=== PATIENT | male | born 1960 | race Caucasian/White ===

== ENCOUNTER 2024-06-04 10:57 | Outpatient (CLI) | payer OTHER, SELFPAY ==
--- NOTE | ~2024-06-04 | CT_ITS ---
EXAMINATION: CT sinus wo con DATE: 06/04/2024 11:21 INDICATION: Chronic sinusitis TECHNIQUE: Computed tomography (CT) of the paranasal sinuses was performed without intravenous contra st. The dose-length product was 303.09 mGy-cm.. Automated exposure control and iterative reconstructi on technique were employed. COMPARISON: None FINDINGS: Leftward nasal septal deviation. Right-sided francheska bullosa. Ostiomeatal units are patent b ilaterally. There is mild mucosal thickening of the left maxillary sinus. No air-fluid levels. No sig nificant mucoperiosteal reaction. Mastoids are pneumatized. IMPRESSION: 1. Mild left maxillary sinus disease. Reviewed, dictated and finalized at location B.
== END 2024-06-04 10:58 | disposition home or self-care (01) ==
LOC: ANHIMG 11:04
PROVIDERS: PCP Family Medicine; Visit Provider Otolaryngology
DX: J32.9 Chronic sinusitis, unspecified (principal)
CPT/HCPCS: 70486

== ENCOUNTER 2024-06-06 10:51 | Outpatient (CLI) | payer OTHER, SELFPAY | END 2024-06-06 10:52 | disposition home or self-care (01) | LOC: ANHBWCAUD 10:51 | PROVIDERS: PCP Family Medicine; Visit Provider Otolaryngology | DX: H69.93 Unspecified Eustachian tube disorder, bilateral (principal) | CPT/HCPCS: 92557; 92567 ==